=== PATIENT | female | born 1975 | race Caucasian/White ===

== ENCOUNTER → 2020-12-10 | Outpatient (CLI) | payer OTHER ==
[2020-12-10 14:50] LABS: Prolactin 7.7 ng/mL (2.8-29.2)
[2020-12-10 14:51] LABS: Follicle Stimulating Hormone 89.7 mIU/mL; Luteinizing Hormone 45.9 mIU/mL; T4, Free (Free Thyroxine) 1.1 ng/dL (0.80-1.80)
== END | disposition home or self-care (01) ==
LOC: LABWHC1 09:32
PROVIDERS: ATTEND Internal Medicine Endocrinology, Diabetes & Metabolism
DX: E04.1 Nontoxic single thyroid nodule (principal); D35.2 Benign neoplasm of pituitary gland
CPT/HCPCS: 36415; 82024; 82533; 83001; 83002; 84146; 84305; 84439; 84443

== ENCOUNTER → 2021-01-02 | Outpatient (CLI) | payer OTHER ==
--- NOTE | 2021-01-07 13:47 | NM ---
EXAMINATION TYPE: NM thyroid image w uptake DATE OF EXAM: 01/03/2021 COMPARISON: Ultrasound 11/06/2020 HISTORY: Abnormal ultrasound TECHNIQUE: Thyroid iodine uptake is calculated and images performed after the oral administration of 318 uCi 1-123 Capsule. FINDINGS: There is increased uptake involving the medial mid and lower margin of the right thyroid wi th a small area of satellite uptake seen inferior to this region. No significant uptake is seen with regard to the left thyroid.. The 4 hour iodine uptake is calculated at 10.3% (normal range 8-14%). T he 24-hour iodine uptake is calculated at 28.7% (normal range 15-35%). IMPRESSION: 1. Markedly asymmetric uptake with little or no uptake seen on the left and heterogeneous uptake on t he right could be on the basis of of a autonomously functioning nodule. Previous ultrasound does demo nstrate a large thyroid nodule in this region. Correlate clinically to exclude other etiologies.
== END | disposition home or self-care (01) ==
LOC: RADNMMAIN 08:32
PROVIDERS: ATTEND Internal Medicine Endocrinology, Diabetes & Metabolism
DX: R94.6 Abnormal results of thyroid function studies (principal)
CPT/HCPCS: 78014; A9516

== ENCOUNTER → 2021-03-26 | Outpatient (CLI) | payer OTHER ==
[2021-03-26 19:47] LABS: T4, Free (Free Thyroxine) 0.87 ng/dL (0.800-1.800)
== END | disposition home or self-care (01) ==
LOC: LABWHC1 09:44
PROVIDERS: ATTEND Internal Medicine Endocrinology, Diabetes & Metabolism
DX: E05.90 Thyrotoxicosis, unspecified without thyrotoxic crisis or storm (principal)
CPT/HCPCS: 36415; 84439; 84443; 84481

== ENCOUNTER → 2021-05-17 | Outpatient (CLI) | payer OTHER ==
[2021-05-17 17:30] LABS: T4, Free (Free Thyroxine) 1.6 ng/dL (0.800-1.800)
== END | disposition home or self-care (01) ==
LOC: LABWHC1 09:58
PROVIDERS: ATTEND Internal Medicine Endocrinology, Diabetes & Metabolism
DX: E03.8 Other specified hypothyroidism (principal)
CPT/HCPCS: 36415; 84439; 84443

== ENCOUNTER → 2021-08-16 | Outpatient (CLI) | payer OTHER | END | disposition home or self-care (01) | LOC: LABWHC1 10:03 | PROVIDERS: ATTEND Internal Medicine Endocrinology, Diabetes & Metabolism | DX: E03.8 Other specified hypothyroidism (principal) | CPT/HCPCS: 36415; 84443 ==

== ENCOUNTER → 2022-04-02 | Outpatient (CLI) | payer OTHER | END | disposition home or self-care (01) | LOC: LABWHC1 09:08 | PROVIDERS: ATTEND Internal Medicine Endocrinology, Diabetes & Metabolism | DX: E03.8 Other specified hypothyroidism (principal) | CPT/HCPCS: 36415; 84443 ==

== ENCOUNTER → 2022-10-03 | Outpatient (CLI) | payer OTHER | END | disposition home or self-care (01) | LOC: LABWHC1 09:56 | PROVIDERS: ATTEND Internal Medicine Endocrinology, Diabetes & Metabolism | DX: E03.8 Other specified hypothyroidism (principal) | CPT/HCPCS: 36415; 84443 ==

== ENCOUNTER → 2023-07-01 | Outpatient (CLI) | payer OTHER | END | disposition home or self-care (01) | LOC: LABWHC1 10:15 | PROVIDERS: ATTEND Internal Medicine Endocrinology, Diabetes & Metabolism | DX: E03.8 Other specified hypothyroidism (principal) | CPT/HCPCS: 36415; 84443 ==